=== PATIENT | female | born 1940 | race Caucasian/White ===

== ENCOUNTER → 2023-01-25 14:18 | Outpatient (BNVA) | payer MEDICARE, SELFPAY | PROVIDERS: PCP Internal Medicine; Visit Provider Psychiatry & Neurology Neurology | DX: M54.2 Cervicalgia (principal); R26.9 Unspecified abnormalities of gait and mobility; R51.9 Headache, unspecified; G89.29 Other chronic pain | CPT/HCPCS: 99202 ==

== ENCOUNTER 2023-02-16 13:39 | Outpatient (REF) | payer MEDICARE, SELFPAY ==
--- NOTE | ~2023-02-16 | MR_ITS ---
MR CERVICAL SPINE WITHOUT CONTRAST CLINICAL INFORMATION: Spondylosis without myelopathy or radiculopathy. COMPARISON: None available. TECHNIQUE: MRI of the cervical spine was obtained using routine sequences without contrast. FINDINGS: There is mild anterior subluxation of C2 on C3. There is severe disc volume loss at C5-C6 and mild disc volume loss at C6-C7. There is no bone marrow edema. There are no acute fractures. Vertebral body heights are maintained. Craniocervical junction is unremarkable. Cervical arterial flow voids are maintained. No significant extraspinal soft tissue findings. No cord signal changes. C2-C3: There is mild anterior subluxation. Advanced left-sided facet arthropathy results in mild left-sided foraminal encroachment. No central canal and no right foraminal stenosis. C3-C4: Disc osteophyte and ligamentum flavum thickening mildly narrow the central canal. Uncovertebral joint spurring and facet arthropathy result in mild bilateral foraminal encroachment. C4-C5: Disc osteophyte and ligamentum flavum thickening result in mild narrowing of the central canal. Left greater the right facet arthropathy. No significant foraminal stenosis. C5-C6: Disc osteophyte and ligamentum flavum thickening mildly narrow the central canal. Uncovertebral joint spurring and facet arthropathy result in moderate right-sided foraminal stenosis. C6-C7: Disc osteophyte mildly narrows the central canal and there is no foraminal stenosis. C7-T1: Contour is normal. No central canal stenosis and no foraminal stenosis. MR/MR cervical spine wo con IMPRESSION: Multilevel cervical spondylosis. Spondylitic changes result in moderate right-sided foraminal stenosis at C5-C6. There is no severe central canal stenosis within the cervical spine. Mild anterior subluxation of C2 on C3. There is advanced multilevel hypertrophic facet arthropathy primarily on the left side.
== END 2023-02-16 13:40 | disposition home or self-care (01) ==
LOC: HO.MRI 13:39
PROVIDERS: PCP Internal Medicine; Visit Provider Psychiatry & Neurology Neurology
DX: M47.812 Spondylosis without myelopathy or radiculopathy, cervical region (principal)
CPT/HCPCS: 72141

== ENCOUNTER 2023-05-05 10:31 | Outpatient (AMB) | payer MEDICARE, SELFPAY ==
--- NOTE | 2023-05-05 10:34 | MHC.OFFVIS ---
Intake Vital Signs 05/05/23 10:35 Height 5 ft 6 in Weight 157 lb 2 oz BMI 25.4 BP 140/68 H Blood Pressure Location Rt brachial Position Sitting Pulse 101 H Pulse Source Pulse Oximeter Pulse Oximetry (%) 96 Oxygen Delivery Method Room Air Intake Visit Reasons: 3M FOLLOW UP Retropulsion-lvm Intake Note: Patient presents for 3 month follow up Allergies aspirin Allergy (Severe, Verified 05/05/23 10:37) Hives meperidine [From Demerol] Allergy (Severe, Verified 05/05/23 10:37) gi upset sulfamethoxazole [From Bactrim] Allergy (Unknown, Verified 05/05/23 10:37) Unknown trimethoprim [From Bactrim] Allergy (Unknown, Verified 05/05/23 10:37) Unknown Medication List - Last Reconciled 05/05/23 by Holly Pearl MD biotin 5 mg PO DAILY budesonide-formoterol 80-4.5 mcg/actuation (Symbicort) 1 inh inhalation BID cyclobenzaprine 10 mg PO BEDTIME denosumab (Prolia) 60 mg subcut [id number] fluticasone propionate 50 mcg/actuation 1 spray intranasal BID levothyroxine mcg PO lisinopril 10 mg PO DAILY magnesium glycinate 400 mg (4 x 100 mg) PO DAILY HPI HPI Comments History of Present Illness Details 82y/o right handed female comes for gait disturbance and retropulsion. She has a long h/o arthritis in her knees, hips, shoulders, neck and back. [facility] she had gait issues for many years due to pain but has worsened in the past 1 year. she reports she feels unsteady along with neck and back pain . she wakes up normal but after few hours of being up her neck and back starts hurting and her gait worsens. No falls.she uses a cane or walker on and off. Her last imaging was in 2016 for her neck and later for her back. she reports occasional tingling in her fingers , toes L>R she denies any radiating pain in UE or LE she has stress incontinence and urgency incontinence. she was very athletic but gave up a lot of activities due to her arthritis. SHe has occasional tremors when she is under stress or pain.Her speech is normal. Cognition is good. [facility] Medical History (Updated 05/05/23 @ 11:06 by Holly Pearl MD) Allergic rhinitis Anxiety Aortic valve disease, rheumatic Arthritis Asthma Cervical dystonia Cervical spondylosis Chronic headaches Gait abnormality HTN (hypertension) Hypothyroidism LBBB (left bundle branch block) Neck pain Surgical History History of hip replacement History of knee replacement Family History Father COPD (chronic obstructive pulmonary disease) Mother Diabetes Paternal Aunt Breast CA Brother Prostate CA Social History Alcohol intake: current Patient Tobacco Use Status: Former Tobacco user Physical Exam Vital Signs: Last Vital Signs Pulse 101 H 05/05/23 10:35 BP 140/68 H 05/05/23 10:35 Pulse Ox 96 05/05/23 10:35 Oxygen Delivery Method Room Air 05/05/23 10:35 BMI result Body Mass Index 25.4 Const General: cooperative, healthy appearing, comfortable and no acute distress Nutritional Appearance: average body habitus Orientation/consciousness: patient oriented x3 Limitations: ambulation with cane HEENT Head: Yes normal to inspection Eyes Pupils: Equal, round and reactive pupils present Neck Other: antecollis restricted range of motion Neuro General: patient oriented x3, tone normal and moves all extremities Cranial nerves: Yes Equal, round and reactive pupils present, Yes Bilaterally intact EOM present, Yes Nystagmus not present, Yes Normal facial strength present, Yes Midline tongue present and Yes Ability to bilaterally elevate shoulders present Cognition (Neuro): normal cognition Gait exam (Neuro): Other gait observations present (mild wide based, small steps ) Motor exam (neuro): 5/5 motor strength present throughout and Normal motor muscle tone present throughout Deep tendon reflexes (DTR's): Right triceps reflex intensity grade: 2+, Left triceps reflex intensity grade: 2+, Rt Biceps (C5, C6): 2+, Left biceps reflex intensity grade: 2+, Right brachioradialis reflex intensity grade: 2+, Left brachioradialis reflex intensity grade: 2+, Right patellar reflex intensity grade: 1+ and Left patellar reflex intensity grade: 1+ Coordination: [id number]-ew-wiqu test normal Psych Appearance: grossly normal Assessment & Plan Assessment & Plan (1) Neck pain: Code(s): M54.2 - Cervicalgia (2) Gait abnormality: Code(s): R26.9 - Unspecified abnormalities of gait and mobility (3) Chronic headaches: Comment: cervicogenic Code(s): R51.9 - Headache, unspecified; G89.29 - Other chronic pain (4) Cervical dystonia: Code(s): G24.3 - Spasmodic torticollis Plan MRI C spine- spondylosis She will benefit from Botox- Obtain prior auth and schedule Increase Flexeril 10mg qhs PT for gait and myofascial release There is no evidence of parkinsons on todays exam Orders: Orders PT Evaluation and Treatment Today G89.29 - Other chronic pain, M47.812 - Spondylosis without myelopathy or radiculopathy, cervical region, R51.9 - Headache, unspecified Medications: New magnesium glycinate 400 mg (4 x 100 mg) PO DAILY 120 tabs 0RF Changed From cyclobenzaprine 5 mg PO BEDTIME 30 tabs 1RF To cyclobenzaprine 10 mg PO BEDTIME 30 tabs 1RF Coding Level of Care Code Est Pt Level 4 (67671) Diagnoses Neck pain M54.2 Gait abnormality R26.9 Chronic headaches R51.9; G89.29 Cervical dystonia G24.3
[2023-05-05 10:35] VITALS: BP 140/68; PULSE 101; O2SAT 96; BMI 25.4
== END 2023-05-05 11:12 | disposition home or self-care (01) ==
LOC: HO.HSMS 10:31
PROVIDERS: PCP Internal Medicine; Visit Provider Psychiatry & Neurology Neurology
DX: M54.2 Cervicalgia (principal); R26.9 Unspecified abnormalities of gait and mobility; R51.9 Headache, unspecified; G89.29 Other chronic pain; G24.3 Spasmodic torticollis
CPT/HCPCS: 99214

== ENCOUNTER → 2023-05-05 10:31 | Outpatient (BNVA) | payer MEDICARE, SELFPAY | PROVIDERS: PCP Internal Medicine; Visit Provider Psychiatry & Neurology Neurology | DX: M47.812 Spondylosis without myelopathy or radiculopathy, cervical region (principal); G89.29 Other chronic pain; G24.3 Spasmodic torticollis; R26.89 Other abnormalities of gait and mobility; R51.9 Headache, unspecified | CPT/HCPCS: 99212 ==

== ENCOUNTER 2023-08-06 08:36 | Outpatient (AMB) | payer MEDICARE, SELFPAY ==
--- NOTE | 2023-08-06 08:37 | MHC.OFFVIS ---
Intake Vital Signs 08/06/23 08:41 Height 5 ft 6 in Weight 147 lb 9 oz BMI 23.8 BP 132/68 Blood Pressure Location Rt brachial Position Sitting Respiration 15 Pulse 120 H Pulse Source Pulse Oximeter Pulse Oximetry (%) 96 Oxygen Delivery Method Room Air Intake Visit Reasons: botox (b&b)-lvm Intake Note: Pt presents to office for Botox injection. Pt states headaches and neck pain are much better. Allergies aspirin Allergy (Severe, Verified 08/06/23 08:38) Hives meperidine [From Demerol] Allergy (Severe, Verified 08/06/23 08:38) gi upset sulfamethoxazole [From Bactrim] Allergy (Unknown, Verified 08/06/23 08:38) Unknown trimethoprim [From Bactrim] Allergy (Unknown, Verified 08/06/23 08:38) Unknown Medication List - Last Reconciled 08/06/23 by Holly Pearl MD biotin 5 mg PO DAILY budesonide-formoterol 80-4.5 mcg/actuation (Symbicort) 1 inh inhalation BID cyclobenzaprine 10 mg PO BEDTIME denosumab (Prolia) 60 mg subcut [id number] fluticasone propionate 50 mcg/actuation 1 spray intranasal BID levothyroxine mcg PO lisinopril 10 mg PO DAILY magnesium glycinate 400 mg (4 x 100 mg) PO DAILY HPI HPI Comments History of Present Illness Details 82y/o female comes for treatment of her cervical dystonia ? Side effects including spread of toxin effect, dysphagia, breathing difficulties , bronchitis etc was discussed in detail and the patient agreed to the procedure.An informed consent was obtained ??? Botulinum toxin type A 100units X 1 -was diluted with 2 cc of normal saline at a concentration of 25 units in 0.5cc saline. Lot number [id number] expiration 09/2026 ??? Muscles injected ??? samson Splenius - 25 units each ??? Samson levator 50 units each ? Total used 150 units discarded 50 units PFSH Medical History Cervical dystonia Chronic headaches Gait abnormality HTN (hypertension) Neck pain LBBB (left bundle branch block) Cervical spondylosis Arthritis Hypothyroidism Asthma Aortic valve disease, rheumatic Allergic rhinitis Anxiety Surgical History History of knee replacement History of hip replacement Family History Father COPD (chronic obstructive pulmonary disease) Mother Diabetes Paternal Aunt Breast CA Brother Prostate CA Social History Alcohol intake: current Patient Tobacco Use Status: Former Tobacco user Physical Exam Vital Signs: Last Vital Signs Pulse 120 H 08/06/23 08:41 Resp 15 08/06/23 08:41 BP 132/68 08/06/23 08:41 Pulse Ox 96 08/06/23 08:41 Oxygen Delivery Method Room Air 08/06/23 08:41 BMI result Body Mass Index 23.8 Const General: cooperative, healthy appearing, comfortable and no acute distress Nutritional Appearance: average body habitus Orientation/consciousness: patient oriented x3 Limitations: ambulation with cane HEENT Head: Yes normal to inspection Neck Other: antecollis restricted range of motion Neuro General: patient oriented x3, tone normal and moves all extremities Cognition (Neuro): normal cognition Gait exam (Neuro): Other gait observations present (mild wide based, small steps ) Motor exam (neuro): 5/5 motor strength present throughout and Normal motor muscle tone present throughout Coordination: koacjm-qw-tngj test normal Psych Appearance: grossly normal Office Procedures Botulinum toxin Injection 78164 - Dystonia Procedure code (CPT) selection complete Office Meds onabotulinumtoxinA 200 unit solution for injection Performing Provider: Holly Pearl MD Performing Location: [facility] [place] [facility] Administered by: Holly Pearl MD on 08/06/23 10:07 Dose Route Admin Location Dispensed Lot Number Expiration Date [facility] Tire Specialist 150 unit IM 200 units [id number] 11/25/25 7948-8646-32 ALLERGAN/BOTOX Comments: see HPI Assessment & Plan Assessment & Plan (1) Cervical dystonia: Code(s): G24.3 - Spasmodic torticollis Plan She tolerated the procedure well. She will call with any new side effects Orders: Orders AMB Botulinum toxin Injection Today G24.3 - Spasmodic torticollis Coding Level of Care Code Est Pt Level 1 (93721) Diagnoses Cervical dystonia G24.3 CPT Codes Botox Injection - Botox 4: 36276 - Dystonia ([id number])
[2023-08-06 08:41] VITALS: BP 132/68; PULSE 120; RESP 15; O2SAT 96; BMI 23.8
== END 2023-08-06 09:05 | disposition home or self-care (01) ==
PROVIDERS: PCP Internal Medicine; Visit Provider Psychiatry & Neurology Neurology
DX: G24.3 Spasmodic torticollis (principal)
CPT/HCPCS: 64616

== ENCOUNTER → 2023-08-06 08:36 | Outpatient (BNVA) | payer MEDICARE, SELFPAY | PROVIDERS: PCP Internal Medicine; Visit Provider Psychiatry & Neurology Neurology | DX: G24.3 Spasmodic torticollis (principal); M47.812 Spondylosis without myelopathy or radiculopathy, cervical region | CPT/HCPCS: 64616; 99211; J0585 ==

== ENCOUNTER 2024-01-04 11:03 | Outpatient (AMB) | payer MEDICARE, SELFPAY ==
--- NOTE | 2024-01-04 11:06 | MHC.OFFVIS ---
Intake Vital Signs 01/04/24 11:08 Height 5 ft 6 in Weight 128 lb 8 oz BMI 20.7 BP 158/78 H Blood Pressure Location Rt brachial Position Sitting Respiration 17 Pulse 104 H Pulse Source Pulse Oximeter Pulse Oximetry (%) 97 Oxygen Delivery Method Room Air Intake Visit Reasons: Botox-LVM Intake Note: Pt presents to the office for Botox injections. Keyseating Machine Set Up Operator Required: No Allergies aspirin Allergy (Severe, Verified 01/04/24 11:07) Hives meperidine [From Demerol] Allergy (Severe, Verified 01/04/24 11:07) gi upset sulfamethoxazole [From Bactrim] Allergy (Unknown, Verified 01/04/24 11:07) Unknown trimethoprim [From Bactrim] Allergy (Unknown, Verified 01/04/24 11:07) Unknown Medication List - Last Reconciled 01/04/24 by Holly Pearl MD biotin 5 mg PO DAILY budesonide-formoterol 80-4.5 mcg/actuation (Symbicort) 1 inh inhalation BID cyclobenzaprine 10 mg PO BEDTIME fluticasone propionate 50 mcg/actuation 1 spray intranasal BID levothyroxine mcg PO lisinopril 10 mg PO DAILY sertraline 25 mg PO DAILY HPI HPI Comments History of Present Illness Details 83y/o female comes for treatment of her cervical dystonia ? Side effects including spread of toxin effect, dysphagia, breathing difficulties , bronchitis etc was discussed in detail and the patient agreed to the procedure.An informed consent was obtained ??? Botulinum toxin type A 200units X 1 -was diluted with 2 cc of normal saline at a concentration of 25 units in 0.5cc saline. Lot number [id number] expiration 03/2026 ??? Muscles injected ??? samson Splenius - 50 units each ??? Samson levator 50 units each ? Total used 200 units [facility] Medical History Cervical dystonia Chronic headaches Gait abnormality HTN (hypertension) Neck pain LBBB (left bundle branch block) Cervical spondylosis Arthritis Hypothyroidism Asthma Aortic valve disease, rheumatic Allergic rhinitis Anxiety Surgical History History of knee replacement History of hip replacement Family History Father COPD (chronic obstructive pulmonary disease) Mother Diabetes Paternal Aunt Breast CA Brother Prostate CA Social History Alcohol intake: current Patient Tobacco Use Status: Former Tobacco user Physical Exam Vital Signs: Last Vital Signs Pulse 104 H 01/04/24 11:08 Resp 17 01/04/24 11:08 BP 158/78 H 01/04/24 11:08 Pulse Ox 97 01/04/24 11:08 Oxygen Delivery Method Room Air 01/04/24 11:08 BMI result Body Mass Index 20.7 Const General: cooperative, healthy appearing, comfortable and no acute distress Nutritional Appearance: average body habitus Orientation/consciousness: patient oriented x3 Limitations: ambulation with cane HEENT Head: Yes normal to inspection Neck Other: antecollis restricted range of motion Neuro General: patient oriented x3, tone normal and moves all extremities Cognition (Neuro): normal cognition Gait exam (Neuro): Other gait observations present (mild wide based, small steps ) Motor exam (neuro): 5/5 motor strength present throughout and Normal motor muscle tone present throughout Coordination: sediua-fv-qrol test normal Psych Appearance: grossly normal Office Procedures Botulinum toxin Injection 43063 - Dystonia Procedure code (CPT) selection complete Office Meds onabotulinumtoxinA 200 unit solution for injection Performing Provider: Holly Pearl MD Performing Location: [facility] [place] [facility] Administered by: oHlly Pearl MD on 01/04/24 11:42 Dose Route Admin Location Dispensed Lot Number Expiration Date [facility] Research Psychologist 200 unit IM 200 units [id number] 03/25/26 7318-6295-89 ALLERGAN/BOTOX Comments: see HPI Assessment & Plan Assessment & Plan (1) Cervical dystonia: Code(s): G24.3 - Spasmodic torticollis Plan She tolerated the procedure well. She will call with any new side effects Orders: Orders AMB Botulinum toxin Injection Today G24.3 - Spasmodic torticollis Coding Level of Care Code Est Pt Level 1 (87451) Diagnoses Cervical dystonia G24.3 CPT Codes Botox Injection - Botox 4: 44713 - Dystonia ([id number])
[2024-01-04 11:08] VITALS: BP 158/78; PULSE 104; RESP 17; O2SAT 97; BMI 20.7
== END 2024-01-04 11:50 | disposition home or self-care (01) ==
PROVIDERS: PCP Internal Medicine; Visit Provider Psychiatry & Neurology Neurology
DX: G24.3 Spasmodic torticollis (principal)
CPT/HCPCS: 64616

== ENCOUNTER → 2024-01-04 11:03 | Outpatient (BNVA) | payer MEDICARE, SELFPAY | PROVIDERS: PCP Internal Medicine; Visit Provider Psychiatry & Neurology Neurology | DX: G24.3 Spasmodic torticollis (principal) | CPT/HCPCS: 64616; 99211; J0585 ==

== ENCOUNTER 2024-07-12 10:39 | Outpatient (AMB) | payer MEDICARE, SELFPAY ==
--- NOTE | 2024-07-12 10:45 | MHC.OFFVIS ---
Vital Signs 07/12/24 10:46 Height 5 ft 6 in Weight 127 lb 8 oz BMI 20.6 BP 132/70 Blood Pressure Location Rt brachial Position Sitting Respiration 16 Pulse 107 H Pulse Source Pulse Oximeter Pulse Oximetry (%) 95 Oxygen Delivery Method Room Air Intake Visit Reasons: botox (b&b) Intake Note: Pt presents to the office for Botox injections for cervical dystonia. Business System Consultant Required: No Allergies aspirin Allergy (Severe, Verified 07/12/24 10:46) Hives meperidine [From Demerol] Allergy (Severe, Verified 07/12/24 10:46) gi upset sulfamethoxazole [From Bactrim] Allergy (Unknown, Verified 07/12/24 10:46) Unknown trimethoprim [From Bactrim] Allergy (Unknown, Verified 07/12/24 10:46) Unknown Medication List - Last Reconciled 07/12/24 by Holly Pearl MD biotin 5 mg PO DAILY budesonide-formoterol 80-4.5 mcg/actuation (Symbicort) 1 inh inhalation BID cyclobenzaprine 10 mg PO BEDTIME fluticasone propionate 50 mcg/actuation 1 spray intranasal BID levothyroxine mcg PO lisinopril 10 mg PO DAILY sertraline 25 mg PO DAILY HPI Comments Details: 83y/o female comes for treatment of her cervical dystonia ? Side effects including spread of toxin effect, dysphagia, breathing difficulties , bronchitis etc was discussed in detail and the patient agreed to the procedure.An informed consent was obtained ??? Botulinum toxin type A 200units X 1 -was diluted with 2 cc of normal saline at a concentration of 25 units in 0.5cc saline. Lot number [id number] expiration 09/2026 ??? Muscles injected ??? august Splenius - 50 units each ??? left levator 50 units Left trapezius 25 units Right Levator 25 units ? Total used 200 units [facility] Medical History Lumbar compression fracture Cervical dystonia Chronic headaches Gait abnormality HTN (hypertension) Neck pain LBBB (left bundle branch block) Cervical spondylosis Arthritis Hypothyroidism Asthma Aortic valve disease, rheumatic Allergic rhinitis Anxiety Surgical History History of knee replacement History of hip replacement Family History Father COPD (chronic obstructive pulmonary disease) Mother Diabetes Paternal Aunt Breast CA Brother Prostate CA Social History Alcohol intake: current Patient Tobacco Use Status: Former Tobacco user Physical Exam Vital Signs: Last Vital Signs Pulse 107 H 07/12/24 10:46 Resp 16 07/12/24 10:46 BP 132/70 07/12/24 10:46 Pulse Ox 95 07/12/24 10:46 Oxygen Delivery Method Room Air 07/12/24 10:46 BMI result Body Mass Index 20.6 Const General: cooperative, healthy appearing, comfortable and no acute distress Nutritional Appearance: average body habitus Orientation/consciousness: patient oriented x3 Limitations: ambulation with cane HEENT Head: Yes normal to inspection Neck Other: antecollis restricted range of motion Neuro General: patient oriented x3, tone normal and moves all extremities Cognition (Neuro): normal cognition Gait exam (Neuro): Other gait observations present (mild wide based, small steps ) Motor exam (neuro): 5/5 motor strength present throughout and Normal motor muscle tone present throughout Coordination: mrulhg-ju-rlqf test normal Psych Appearance: grossly normal Office Procedures Botulinum toxin Injection 39683 - Dystonia Procedure code (CPT) selection complete Office Meds onabotulinumtoxinA 200 unit solution for injection Performing Provider: Holly Pearl MD Performing Location: [facility] [place] [facility] Administered by: Holly Pearl MD on 07/12/24 11:06 Dose Route Admin Location Dispensed Lot Number Expiration Date [facility] Retread Mold Operator 200 unit IM 200 units [id number] 09/24/26 4637-3634-18 ALLERGAN/BOTOX Comments: see HPI Assessment & Plan Assessment & Plan (1) 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 She will call with any new side effects Orders: Orders AMB Botulinum toxin Injection Today G24.3 - Spasmodic torticollis Medications: New onabotulinumtoxinA 200 units IM ONCE 1 ea 0RF dystonia G24.3 - Spasmodic torticollis Coding Level of Care Code Est Pt Level 1 (48802) Diagnoses Cervical dystonia G24.3 CPT Codes Botox Injection - Botox 4: 52398 - Dystonia ([id number])
[2024-07-12 10:46] VITALS: BP 132/70; PULSE 107; RESP 16; O2SAT 95; BMI 20.6
== END 2024-07-12 11:07 | disposition home or self-care (01) ==
PROVIDERS: PCP Internal Medicine; Visit Provider Psychiatry & Neurology Neurology
DX: G24.3 Spasmodic torticollis (principal)
CPT/HCPCS: 64616

== ENCOUNTER → 2024-07-12 10:39 | Outpatient (BNVA) | payer MEDICARE, SELFPAY | PROVIDERS: PCP Internal Medicine; Visit Provider Psychiatry & Neurology Neurology | DX: G24.3 Spasmodic torticollis (principal) | CPT/HCPCS: 64616; 99211; J0585 ==

== ENCOUNTER 2024-10-31 13:39 | Outpatient (AMB) | payer MEDICARE, SELFPAY ==
--- NOTE | 2024-10-31 13:47 | A.OFFVIS_ITS ---
Vital Signs 10/31/24 13:48 Height 5 ft 6 in Weight 131 lb BMI 21.1 Intake Visit Reasons: BOTOX Folder Machine Required: No Accompanied by: Daughter Allergies aspirin Allergy (Severe, Verified 10/31/24 13:54) Hives meperidine [From Demerol] Allergy (Severe, Verified 10/31/24 13:54) gi upset sulfamethoxazole [From Bactrim] Allergy (Unknown, Verified 10/31/24 13:54) Unknown trimethoprim [From Bactrim] Allergy (Unknown, Verified 10/31/24 13:54) Unknown Medication List - Last Reconciled 10/31/24 by Holly Pearl MD biotin 5 mg PO DAILY budesonide-formoterol 80-4.5 mcg/actuation (Symbicort) 1 inh inhalation BID cyclobenzaprine 10 mg PO BEDTIME fluticasone propionate 50 mcg/actuation 1 spray intranasal BID levothyroxine mcg PO lisinopril 10 mg PO DAILY sertraline 25 mg PO DAILY Do you need a note to return to daycare/school/sports/work: No HPI Comments Details: 83y/o female comes for treatment of her cervical dystonia ? Side effects including spread of toxin effect, dysphagia, breathing difficu lties , bronchitis etc was discussed in detail and the patient agreed to the procedure.An informed consent was obtained ??? Botulinum toxin type A 200units X 1 -was diluted with 2 cc of normal saline at a concentration of 25 units in 0.5cc saline. Lot number [id number] expiration 06/2026 ??? Muscles injected ??? august Splenius - 50 units each ??? left levator 50 units Left trapezius 25 units Right Levator 25 units ? Total used 200 units [facility] Medical History Lumbar compression fracture Cervical dystonia Chronic headaches Gait abnormality HTN (hypertension) Neck pain LBBB (left bundle branch block) Cervical spondylosis Arthritis Hypothyroidism Asthma Aortic valve disease, rheumatic Allergic rhinitis Anxiety Surgical History History of knee replacement History of hip replacement Family History Father COPD (chronic obstructive pulmonary disease) Mother Diabetes Paternal Aunt Breast CA Brother Prostate CA Social History Alcohol intake: current Patient Tobacco Use Status: Former Tobacco user Physical Exam Vital Signs: BMI result Body Mass Index 21.1 Const General: cooperative, healthy appearing, comfortable and no acute distress Nutritional Appearance: average body habitus Orientation/consciousness: patient oriented x3 Limitations: ambulation with cane HEENT Head: Yes normal to inspection Neck Other: antecollis restricted range of motion Neuro General: patient oriented x3, tone normal and moves all extremities Cognition (Neuro): normal cognition Gait exam (Neuro): Other gait observations present (mild wide based, small steps ) Motor exam (neuro): 5/5 motor strength present throughout and Normal motor muscle tone present throughout Coordination: ugajtd-yp-hbzi test normal Psych Appearance: grossly normal Office Procedures Botulinum toxin Injection 51774 - Dystonia Procedure code (CPT) selection complete Office Meds onabotulinumtoxinA 200 unit solution for injection Performing Provider: Holly Pearl MD Performing Location: [facility] [place] [facility] Administered by: Holly Pearl MD on 10/31/24 14:12 Dose Route Admin Location Dispensed Lot Number Expiration Date [facility] Manager Enterprise Content Management 200 unit IM 200 units [id number] ALLERGAN/BOTOX Comments: see hpi Assessment & Plan Assessment & Plan (1) 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 She will call with any new side effects Orders: Orders AMB Botulinum toxin Injection Today G24.3 - Spasmodic torticollis Medications: New onabotulinumtoxinA 200 units IM ONCE 1 ea 0RF torticollis G24.3 - Spasmodic torticollis Coding Level of Care Code Est Pt Level 1 (84078) Diagnoses Cervical dystonia G24.3 CPT Codes Botox Injection - Botox 4: 34182 - Dystonia ([id number])
[2024-10-31 13:48] VITALS: BMI 21.1
== END 2024-10-31 14:12 | disposition home or self-care (01) ==
PROVIDERS: PCP Internal Medicine; Visit Provider Psychiatry & Neurology Neurology
DX: G24.3 Spasmodic torticollis (principal)
CPT/HCPCS: 64616

== ENCOUNTER → 2024-10-31 13:39 | Outpatient (BNVA) | payer MEDICARE, SELFPAY | PROVIDERS: PCP Internal Medicine; Visit Provider Psychiatry & Neurology Neurology | DX: G24.3 Spasmodic torticollis (principal) | CPT/HCPCS: 64616; 99211; J0585 ==

== ENCOUNTER 2025-02-13 12:58 | Outpatient (AMB) | payer MEDICARE, SELFPAY ==
--- NOTE | 2025-02-13 12:57 | MHC.OFFVIS ---
Vital Signs 02/13/25 12:59 Height 5 ft 6 in Weight 130 lb BMI 21.0 BP 122/70 Blood Pressure Location Rt brachial Position Sitting Pulse 105 H Pulse Source Pulse Oximeter Pulse Oximetry (%) 98 Oxygen Delivery Method Room Air Intake Visit Reasons: botox (b&b) Intake Note: patient presents for botox injection. pharmacy supplied Allergies aspirin Allergy (Severe, Verified 02/13/25 13:03) Hives meperidine [From Demerol] Allergy (Severe, Verified 02/13/25 13:03) gi upset sulfamethoxazole [From Bactrim] Allergy (Unknown, Verified 02/13/25 13:03) Unknown trimethoprim [From Bactrim] Allergy (Unknown, Verified 02/13/25 13:03) Unknown Medication List - Last Reconciled 02/13/25 by Holly Pearl MD biotin 5 mg PO DAILY budesonide-formoterol 80-4.5 mcg/actuation (Symbicort) 1 inh inhalation BID cyclobenzaprine 10 mg PO BEDTIME fluticasone propionate 50 mcg/actuation 1 spray intranasal BID levothyroxine 112 mcg PO DAILY lisinopril 10 mg PO DAILY sertraline 25 mg PO DAILY HPI Comments Details: 84y/o female comes for treatment of her cervical dystonia ? Side effects including spread of toxin effect, dysphagia, breathing difficulties , bronchitis etc was discussed in detail and the patient agreed to the procedure.An informed consent was obtained ??? Botulinum toxin type A 200units X 1 -was diluted with 2 cc of normal saline at a concentration of 25 units in 0.5cc saline. Lot number [id number] expiration January/2027 ??? Muscles injected ??? august Splenius - 50 units each ??? left levator 50 units Left trapezius 25 units Right Levator 25 units ? Total used 200 units [facility] Medical History Lumbar compression fracture Cervical dystonia Chronic headaches Gait abnormality HTN (hypertension) Neck pain LBBB (left bundle branch block) Cervical spondylosis Arthritis Hypothyroidism Asthma Aortic valve disease, rheumatic Allergic rhinitis Anxiety Surgical History History of knee replacement History of hip replacement Family History Father COPD (chronic obstructive pulmonary disease) Mother Diabetes Paternal Aunt Breast CA Brother Prostate CA Social History Alcohol intake: current Patient Tobacco Use Status: Former Tobacco user Physical Exam Vital Signs: Last Vital Signs Pulse 105 H 02/13/25 12:59 BP 122/70 02/13/25 12:59 Pulse Ox 98 02/13/25 12:59 Oxygen Delivery Method Room Air 02/13/25 12:59 BMI result Body Mass Index 21.0 Const General: cooperative, healthy appearing, comfortable and no acute distress Nutritional Appearance: average body habitus Orientation/consciousness: patient oriented x3 Limitations: ambulation with cane HEENT Head: Yes normal to inspection Neck Other: antecollis restricted range of motion Neuro General: patient oriented x3, tone normal and moves all extremities Cognition (Neuro): normal cognition Gait exam (Neuro): Other gait observations present (mild wide based, small steps ) Motor exam (neuro): 5/5 motor strength present throughout and Normal motor muscle tone present throughout Coordination: [id number]-ajea test normal Psych Appearance: grossly normal Office Procedures Botulinum toxin Injection 19869 - Dystonia Procedure code (CPT) selection complete Office Meds onabotulinumtoxinA 200 unit solution for injection Performing Provider: Holly Pearl MD Performing Location[place] [facility] Administered by: Holly Pearl MD on 02/13/25 13:24 Dose Route Admin Location Dispensed Lot Number Expiration Date [facility] [employer]imator 200 unit IM 200 units [id number] ALLERGAN/BOTOX Comments: see HPI Assessment & Plan Assessment & Plan (1) 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 She will call with any new side effects Orders: Orders AMB Botulinum toxin Injection Today G24.3 - Spasmodic torticollis Medications: New onabotulinumtoxinA 200 units IM ONCE 1 ea 0RF torticollis G24.3 - Spasmodic torticollis Coding Level of Care Code Est Pt Level 1 (27821) Diagnoses Cervical dystonia G24.3 CPT Codes Botox Injection - Botox 4: 18873 - Dystonia ([id number])
[2025-02-13 12:59] VITALS: BP 122/70; PULSE 105; O2SAT 98; BMI 21.0
--- OUTSIDE RECORDS SUMMARY | 2025-02-13 15:22 | XMS_ITS ---
Author Name [facility] Organization Unknown History of Medication Use Medication Directions Dispensed Refills Start Date End Date Stat lidocaine (PF) 10 mg/mL (1 %) injection solution Take 2 mL by injection route. 06/29/2023 active fluticasone propionate 50 mcg/actuation nasal spray,suspension USE 1 SPRAY IN BOTH NOSTRILS TWO TIMES A DAY active lisinopril 10 mg tablet TAKE ONE TABLET BY MOUTH EVERY DAY. active Restasis 0.05 % eye drops in a dropperette INSTILL 1 DROP IN EACH EYE TWO TIMES A DAY active Symbicort 80 mcg-4.5 mcg/actuation HFA aerosol inhaler INHALE TWO PUFFS BY MOUTH TWICE A DAY RINSE MOUTH AND THROAT AFTER USE) active Problems Problem Status Onset Date Problem Type Date of Resoluti on Source Osteoarthritis of left glenohumeral joint active 2023-06-29 ProblemAct ENS_AONEC T Encounters Encounter Type Encounter Reason Primary Diagnosis Location Date Ambulatory [facility] [place] 06/29/2023 Ambulatory [facility] [place] 06/29/2023 Ambulatory [facility] [place] 06/29/2023 Ambulatory [facility] [place] 06/21/2023
--- OUTSIDE RECORDS SUMMARY | 2025-02-13 15:22 | XMS_ITS | Clinical Summary ---
Author Organization [facility] Address [address] [place] [address] Care Team Providers Care District Service Manager Name Role Phone Yandy Evans MD Primary Care Provider [phone] [phone] Allergies Active Allergy Reactions Criticality Noted Date Comments Aspirin 02/23/2019 Sulfamethoxazole-Trimethoprim 2018 Medications Medication Sig Dispensed Refills Start Date End Date Status levothyroxine (SYNTHROID, LEVOXYL) tablet 125 mcg 0 01/05/2019 Active omeprazole (PriLOSEC) 20 MG capsule Take 20 mg by mouth 2 (two) times a day. 5 01/11/2019 Active albuterol (PROVENTIL) (2.5 MG/3ML) 0.083% nebulizer solution Take 2.5 mg by nebulization every 6 (six) hours as needed for wheezing. 0 Active fluticasone (FLONASE) 50 MCG/ACT nasal spray spray/apply 1 spray in each nostril daily. 0 Active PAIN RELIEF EXTRA STRENGTH 500 MG tablet TAKE TWO TABLETS BY MOUTH THREE TIMES A DAY BEFORE MEALS (DO NOT TAKE WITH ALCOHOL) 0 07/06/2019 Active DOK 100 MG capsule TAKE ONE CAPSULE BY MOUTH TWICE A DAY FOR CONSTIPATION PREVENTION. HOLD IF LOOSE STOOLS 0 07/06/2019 Active oxyCODONE (ROXICODONE) 5 MG immediate release tablet Take 1-2 tabs p.o. every 4 to 6 hours as needed for pain 40 tablet 0 07/18/2019 Active Additional Information Patient not taking.Reason: Other, Reported on 03/14/2020 JANTOVEN 1 MG tablet Take 5 tabs daily or as directed by physician 70 tablet 0 07/20/2019 Active Additional Information Patient not taking.Reason: Other, Reported on 06/13/2020 warfarin (COUMADIN) 1 MG tablet Take 6 tabs daily or as directed by physician 48 tablet 0 07/24/2019 Active Additional Information Patient not taking.Reason: Other, Reported on 08/29/2019 warfarin (COUMADIN) 1 MG tablet Take 5 tabs daily or as directed by physician 70 tablet 0 07/24/2019 Active Additional Information Patient not taking.Reason: Other, Reported on 08/29/2019 SYMBICORT 80-4.5 MCG/ACT inhaler INHALE 2 PUFFS TWICE A DAY , RINSE MOUTH AND THROAT AFTER USE 3 08/10/2019 Active traMADol (ULTRAM) 50 MG tablet TAKE ONE TABLET BY MOUTH EVERY 4 TO 6 HOURS NEEDED FOR PAIN 0 08/18/2019 Active celecoxib (CeleBREX) 200 MG capsule Take 200 mg by mouth daily. 0 06/12/2021 Active amoxicillin (AMOXIL) 500 MG tablet Take 4 tabs 1 hour prior to dental appointment 20 tablet 3 06/24/2021 Active Active Problems Problem Noted Date Diagnosed Date Postoperative stiffness of total knee replacemen t 12/21/2019 Postop check 08/29/2019 Arthritis of knee, left 02/23/2019 Family History Medical History Relation Name Comments Cancer Brother Diabetes Mother Relation Name Status Comments Brother Mother Social History Tobacco Use Types Packs/Day Years Used Date Smoking Tobacco: Never Assessed Sex and Gender Information Value Date Recorded Sex Assigned at Not on file Gender Identity Not on file Sexual Orientation Not on file Job Start Date Occupation Industry Not on file Not on file Not on file Last Filed Vital Signs Vital Sign Reading Time Taken Comments Blood Pressure - - Pulse - - Temperature - - Respiratory Rate - - Oxygen Saturation - - Inhaled Oxygen Concentration - - Weight 67.1 kg (148 lb) 06/20/2019 8:46 AM EDT Height 165.1 cm (5' 5 ) 06/20/2019 8:46 AM EDT Body Mass Index 24.63 06/20/2019 8:46 AM EDT Plan of Treatment Health Maintenance Due Date Last Done Comments COVID-19 Vaccine (#1) 05/18/1941 Depression Screening 1953 Preventative Health Evaluation 1959 Shingrix-Zoster Vaccine (1 of 2) 1991 Fall Risk Assessment 2006 Osteoporosis Screening (DEXA Scan) 2006 DTap / Tdap / Td (2 - Tdap) 05/30/2008 05/30/1998 RSV Adult > 60+ Yrs or (1 - 1-dose 75+ series) 2016 Influenza Vaccine (#1) 2024 9, 07/29/2018, 07/29/2017, Additional history exists Pneumococcal Vaccine Completed 01/17/2015, 01/04/20 07 Hepatitis B Vaccines Aged Out No long er eligible based on patient's age to complete this topic RSV Ped < 20 months Aged Out No longe r eligible based on patient's age to complete this topic Care Teams District Service Manager Relationship Specialty Start Date End Date Yandy Evans MD [address] [address] PCP - General Internal Medicine 01/27/19
--- OUTSIDE RECORDS SUMMARY | 2025-02-13 15:22 | XMS_ITS | Clinical Summary ---
Author Organization [facility] it[facility] Address [address] [place] [address] Care Team Providers Care Clear Coat Sprayer Name Role Phone Yandy Evans MD Primary Care Provider [phone] Surgical History Surgery Date Site/Laterality Comments JOINT REPLACEMENT PROCEDURE:JOINT REPLACEMENT Medical History Medical History Date Comments Asthma DX:Asthma Hypothyroidism DX:Hypothyroidis m Osteoporosis DX:Osteoporosis Psoriasis DX:Psoriasis Family History Medical History Relation Name Comments Cancer Brother Diabetes Mother Relation Name Status Comments Brother Mother Social History Tobacco Use Types Packs/Day Years Used Date Smoking Tobacco: Never Assessed Comments Unknown Sex and Gender Information Value Date Recorded Sex Assigned at Not on file Legal Sex Female 3:16 PM EST Gender Identity Not on file Sexual Orientation Not on file Obstetrics History Plan of Treatment Health Maintenance Due Date Last Done Comments DTaP,Tdap,and Td Vaccines (1 - Tdap) 1960 Pneumococcal Vaccine: 50+ Ye ars (1 of 1 - PCV) 1991 Zoster Vaccines (1 of 2) 1991 RSV Immunization Adult Patie nts (1 - 1-dose 75+ series) 2016 Depression Screening 09/23/2022 Falls Risk Assessment 09/23/2022 Osteoporosis Screening (Bone Density Screening) 09/23/2022 Social Influencers of Health Screening 09/23/2022 COVID-19 Vaccine ( - 2023-2 5 season) 2024 Influenza Vaccine (Season Ended) 2025 HIB Vaccines Aged Out No longer eligi ble based on patient's age to complete this topic HPV Vaccines Aged Out No longer eligi ble based on patient's age to complete this topic Hepatitis A Vaccines Aged Out No long er eligible based on patient's age to complete this topic Hepatitis B Vaccines Aged Out No long er eligible based on patient's age to complete this topic IPV Vaccines Aged Out No longer eligi ble based on patient's age to complete this topic MMR Vaccines Aged Out No longer eligi ble based on patient's age to complete this topic Meningococcal ACWY Vaccine Aged Out N o longer eligible based on patient's age to complete this topic Meningococcal B Vaccine Aged Out No l onger eligible based on patient's age to complete this topic RSV Immunization Patients Un audrey 20 months Aged Out No longer eligible b ased on patient's age to complete this topic Varicella Vaccines Aged Out No longer eligible based on patient's age to complete this topic Care Teams Clear Coat Sprayer Relationship Specialty Start Date End Date Yandy Evans MD [address] [place] [address] [place] PCP - General Internal Medicine 01/27/19
== END 2025-02-13 13:24 | disposition home or self-care (01) ==
LOC: HO.HSMS 12:59
PROVIDERS: PCP Internal Medicine; Visit Provider Psychiatry & Neurology Neurology
DX: G24.3 Spasmodic torticollis (principal)
CPT/HCPCS: 64616

== ENCOUNTER → 2025-02-13 12:58 | Outpatient (BNVA) | payer MEDICARE, SELFPAY | PROVIDERS: PCP Internal Medicine; Visit Provider Psychiatry & Neurology Neurology | DX: G24.3 Spasmodic torticollis (principal) | CPT/HCPCS: 64616; 99211; J0585 ==

== ENCOUNTER 2025-05-15 12:57 | Outpatient (AMB) | payer MEDICARE, SELFPAY ==
--- NOTE | 2025-05-15 13:00 | MHC.OFFVIS ---
Vital Signs 05/15/25 13:01 Height 5 ft 6 in Weight 125 lb BMI 20.2 BP 110/72 Blood Pressure Location Lt brachial Position Sitting Pulse 90 Pulse Source Pulse Oximeter Pulse Oximetry (%) 96 Oxygen Delivery Method Room Air Intake Visit Reasons: Botox Contracts Representative Required: No Accompanied by: Self / Same As Patient Allergies aspirin Allergy (Severe, Verified 05/15/25 13:01) Hives meperidine (From Demerol) Allergy (Severe, Verified 05/15/25 13:01) gi upset sulfamethoxazole (From Bactrim) Allergy (Unknown, Verified 05/15/25 13:01) Unknown trimethoprim (From Bactrim) Allergy (Unknown, Verified 05/15/25 13:01) Unknown Medication List - Last Reconciled 05/15/25 by Holly Pearl MD biotin 5 mg PO DAILY budesonide-formoterol 80-4.5 mcg/actuation (Symbicort) 1 inh inhalation BID cyclobenzaprine 10 mg PO BEDTIME fluticasone propionate 50 mcg/actuation 1 spray intranasal BID levothyroxine 112 mcg PO DAILY lisinopril 10 mg PO DAILY sertraline 25 mg PO DAILY HPI Comments Details: 84y/o female comes for treatment of her cervical dystonia ? Side effects including spread of toxin effect, dysphagia, breathing difficulties , bronchitis etc was discussed in detail and the patient agreed to the procedure.An informed consent was obtained ??? Botulinum toxin type A 200units X 1 -was diluted with 2 cc of normal saline at a concentration of 25 units in 0.5cc saline. Lot number [id number] expiration Nov 2027 ??? Muscles injected ??? august Splenius - 50 units each ??? left levator 50 units Left trapezius 25 units Right Levator 25 units ? Total used 200 units [facility] Medical History Lumbar compression fracture Cervical dystonia Chronic headaches Gait abnormality HTN (hypertension) Neck pain LBBB (left bundle branch block) Cervical spondylosis Arthritis Hypothyroidism Asthma Aortic valve disease, rheumatic Allergic rhinitis Anxiety Surgical History History of knee replacement History of hip replacement Family History Father COPD (chronic obstructive pulmonary disease) Mother Diabetes Paternal Aunt Breast CA Brother Prostate CA Social History Alcohol intake: current Patient Tobacco Use Status: Former Tobacco user Physical Exam Vital Signs: Last Vital Signs Pulse 90 05/15/25 13:01 BP 110/72 05/15/25 13:01 Pulse Ox 96 05/15/25 13:01 Oxygen Delivery Method Room Air 05/15/25 13:01 BMI result Body Mass Index 20.2 Const General: cooperative, healthy appearing, comfortable and no acute distress Nutritional Appearance: average body habitus Orientation/consciousness: patient oriented x3 Limitations: ambulation with cane HEENT Head: Yes normal to inspection Neck Other: antecollis restricted range of motion Neuro General: patient oriented x3, tone normal and moves all extremities Cognition (Neuro): normal cognition Gait exam (Neuro): Other gait observations present (mild wide based, small steps ) Motor exam (neuro): 5/5 motor strength present throughout and Normal motor muscle tone present throughout Coordination: [id number]-tzrh test normal Psych Appearance: grossly normal Office Procedures Botulinum toxin Injection 95975 - Dystonia Procedure code (CPT) selection complete Office Meds onabotulinumtoxinA 200 unit solution for injection Performing Provider: Holly Pearl MD Performing Location: [facility] Administered by: Holly Pearl MD on 05/15/25 13:34 Dose Route Admin Location Dispensed Lot Number Expiration Date [facility] Clinical Investigator 200 unit IM 200 units [id number] ALLERGAN/BOTOX Total Dispensed Waste 200 units 0 % Comments: see hpi Assessment & Plan Assessment & Plan (1) 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 She will call with any new side effects Orders: Orders AMB Botulinum toxin Injection Today G24.3 - Spasmodic torticollis Coding Level of Care Code Est Pt Level 1 (17478) Diagnoses Cervical dystonia G24.3 CPT Codes Botox Injection - Botox 4: 52118 - Dystonia ([id number])
[2025-05-15 13:01] VITALS: BP 110/72; PULSE 90; O2SAT 96; BMI 20.2
--- OUTSIDE RECORDS SUMMARY | 2025-05-15 13:59 | XMS_ITS | Clinical Summary ---
Author Organization [facility] Address [address] [place] [address] Care Team Providers Care Senior Rd Engineer Name Role Phone Yandy Evans MD Primary Care Provider [phone] [phone] Allergies Active Allergy Reactions Criticality Noted Date [...] 1-dose 75+ series) 2016 Influenza Vaccine (#1) 2025 9, 07/29/2018, 07/29/2017, Additional history exists Pneumococcal Vaccine Completed 01/17/2015, 01/04/20 07 Hepatitis B Vaccines Aged Out No long er eligible based on patient's age to complete this topic RSV Ped < 20 months Aged Out No longe r eligible based on patient's age to complete this topic Care Teams Senior Rd Engineer Relationship Specialty Start Date End Date Yandy Evans MD [address] [address] PCP - General Internal Medicine 01/27/19
--- OUTSIDE RECORDS SUMMARY | 2025-05-15 13:59 | XMS_ITS | Clinical Summary ---
Author Organization [facility] [employer] [facility] it[facility] Address [address] [place] [address] Care Team Providers Care Maintenance Coordinator Name Role Phone Yandy Evans MD Primary Care Provider [phone] [phone] Surgical History Surgery Date Site/Laterality Comments JOINT [...] nts (1 - 1-dose 75+ series) 2016 Falls Risk Assessment 09/23/2022 Osteoporosis Screening (Bone Density Screening) 09/23/2022 Social Influencers of Health Screening 09/23/2022 COVID-19 Vaccine (1 - 2023-2 5 season) 2024 Depression Screening 10/25/2024 Influenza Vaccine (#1) 2025 HIB Vaccines Aged Out No longer [...] age to complete this topic Care Teams Maintenance Coordinator Relationship Specialty Start Date End Date Yandy Evans MD [address] [place] [address] [place] PCP - General Internal Medicine 01/27/19
--- OUTSIDE RECORDS SUMMARY | 2025-05-15 13:59 | XMS_ITS | Data Portability ---
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 I had a discussion with the patient by management. She states she is not interested in shoulder replacement surgery. She is amenable to a cortisone injection. After verbal consent was obtained. Procedure was carried out the left shoulder. The patient tolerated the procedure well. Aftercare instructions were discussed in detail. Follow-up visit 3 months time for repeat clinical exam. Should her symptoms not improve or worsen she should contact my office. She agrees with the above-noted plan. Indirect care and treatment in conjunction with Dr. Valerio Additional treatment plan discussed with the patient in detail included the following; - Provider focused nonsteroidal anti-inflammator y regimen (discussed were the pros, cons, benefits and risks as well as any black box warnings) in patients over 60 years old they should be very cautious in taking these medications due to potential decreased kidney function and or elevated blood pressure. - Analgesic pain medication for pain suppression (discussed were the pros, cons, benefits and risks as well as any black box warnings) - The use of topical pain relieving medication were discussed - The use of ice to decrease inflammation and pain - The use of assistive ambulatory devices for ambulation and fall prevention - Formal specific guided physical therapy program I reviewed my findings at length with the patient today. We discussed the nature and etiology of this problem along with current treatment options. We discussed the expected course and outcomes and what to expect. We also discussed risks and benefits. All of their questions were answered today, and there was exhibited understanding and comprehension of all that was discussed. Time Spent: 10 minutes were spent reviewing previous imaging and charting. 10 minutes were spent obtaining patient history. 5 minutes were spent on physical exam. 5minutes were spent explaining diagnosis and assessment. Today's documentation was made using voice recognition software. This note may contain grammatical errors secondary to the software. Not available 06/29/2023 11:40:26 Plan of Treatment Reminders Order Date Submit Date Provider Last Modified By Organization Details Last Modified Time Details Appointments None recorded. Lab None recorded. Referral None recorded. Procedures None recorded. Surgeries None recorded. Imaging XR, shoulder, 2 or more view 2022 023 [email or web address] [facility], [address], Andrez [facility], [place], [address], 11:50:35 Medication Orders Kenalog 40 mg/mL suspension for injection 2022 [address] [place] [address] [facility], [facility] [place], [address], 3 12:15:15 lidocaine (PF) 10 mg/mL (1 %) injection solution 2022 [address] [place] [address] [facility], [address] [place], [address], 3 12:15:15 Patient TargetsNo targets recorded. Patient Instructions Encounter Date Encounter Id Patient Instructions Last Modified By Organization Details Last Modified Time 06/29/2023 [id number] You have been provided with a cortisone injection in order to reduce the pain and inflammation that you are experiencing. The injection consists of two medications. Cortisone (an anti-inflammatory that will take 48-72 hours to take effect) and Lidocaine (a numbing agent that will last 2-3 hours). Please note that not everyone will have a lasting response following the injection. PATIENT INSTRUCTIONS Once the Lidocaine wears off, you may have an increase in your pain. I recommend icing the affected area for 20 minutes 3-4 times per day. It is recommended that you refrain from any high level activities using the joint or limb that was injected for approximately 24-48 hours. Normal day-to-day activities are generally not a problem. POSSIBLE SIDE EFFECTS Individuals with dark complexions may experience some skin discoloration locally at the site of the injection. There is the possibility of an increase in discomfort within 48 hours following the injection. This is called a flare . To help minimize the chances of this, please see the post-injection instructions above. There is a less than 1% chance of an infection. If you notice any signs of infection (redness, warmth, drainage, fever greater than 100 degrees) please call our office or contact us through the portal LEROY. Not available 06/29/2023 12:15:25 Three-view x-ray of the right shoulder reveals severe grade 3 glenohumeral joint space narrowing with osteophyte formation, subchondral sclerosis, severe AC joint space narrowing consistent with arthrosis and type II acromion without acute bony abnormality. Not available 06/29/2023 11:37:37 Reason for Referral None Reported. Problems Name Problem SNOMED Code Status Onset Date Resolution Date Notes Provider Name and Address Organization Details Recorded Time Osteoarthri tis of left glenohumera l joint 5708667849820 104 Active 2022 WENCESLAO JUÁREZ PA-C [address], [place], [address], [place] [facility], P 3 12:14:48 Problem Notes None recorded. Procedures Surgical History Date Name Laterality Status Provider Name and Address Organization Details Recorded Time 3 Shoulder Joint/Bursa Asp & Inj completed WENCESLAO JUÁREZ PA-C [address], [place], [address], [place] [facility], P 06/29/2023 11:39:38 Imaging Results None recorded. Procedure Notes None recorded. Medical Equipment None Reported. Allergies Allergen ID Allergen Name Allergen Category Reaction Reaction Severity Criticality Documentation Date Start Date Code Code System Note Provider Name and Address Organization Details Recorded Time 7868 Asacol medicatio n Not available Not available Not available 06/30/2023 83014 6 RxNorm Sobia moss, [place] - [facility], P 3 11:47:15 Medications Name Sig Start Date Stop Date Status Note LastModified by Organization Details LastModified Time cyclobenzapri ne 10 mg tablet TAKE ONE TABLET BY MOUTH DAILY AT BEDTIME active Not Available Not Available No t Available tramadol 50 mg tablet TAKE ONE TABLET BY MOUTH UP TO FOUR TIMES A DAY IF NEEDED FOR PAIN active Not Available Not Available No t Available Kenalog 40 mg/mL suspension for injection Take 1 mL by injection route. 2022 active Not Available Not Available Not Avai lable levothyroxine 125 mcg tablet TAKE ONE TABLET BY MOUTH EVERY DAY AND TAKE AN EXTRA HALF TABLET ON WEDNESDAY AND WEDNESDAY. active Not Available Not Available No t Available lisinopril 10 mg tablet TAKE ONE TABLET BY MOUTH EVERY DAY. active Not Available Not Available N ot Available albuterol sulfate HFA 90 mcg/actuation aerosol inhaler INHALE TWO PUFFS BY MOUTH FOUR TIMES A DAY NEEDED FOR WHEEZING/S HORTNESS OF BREATH active Not Available Not Available No t Available fluticasone propionate 50 mcg/actuation nasal spray,suspens ion USE 1 SPRAY IN BOTH NOSTRILS TWO TIMES A DAY active Not Available Not Available No t Available cyclobenzapri ne 5 mg tablet TAKE ONE TABLET BY MOUTH AT BEDTIME active Not Available Not Available No t Available Restasis 0.05 % eye drops in a dropperette INSTILL 1 DROP IN EACH EYE TWO TIMES A DAY active Not Available Not Available No t Available lidocaine (PF) 10 mg/mL (1 %) injection solution Take 2 mL by injection route. 2022 active Not Available Not Available Not Avai lable Symbicort 80 mcg-4.5 mcg/actuation HFA aerosol inhaler INHALE TWO PUFFS BY MOUTH TWICE A DAY RINSE MOUTH AND THROAT AFTER USE) active Not Available Not Available N ot Available Vitals Date Recorded Body height Body mass index (BMI) Body weight Provider Name and Address Organization Details Last Updated DateTime 06/30/2023 167.64 cm 25.8 kg/m2 34857.78 g Sobia Patricia [place] - [facility], 06/30/2023 11:47:36 Social History None recorded. Functional Status Question Answer Note LastModified by Organizat ion Details LastModified Time How many times per week do you consume alcohol? 1-2 times per week Information not available 06/30/2023 Do you use any illicit or recreational drugs? No Information not available 06/30/2023 Do you or have you ever used any other forms of tobacco or nicotine? No Information not available 06/30/2023 What is your level of alcohol consumption? Occasional Information not available 06/30/2023 Mental Status None recorded. Family History Relationship Description Onset Age of this Age Resolved Age Notes LastModified by Organization Details LastModified Time Mother Diabetes mellitus Not available 2022 11:49:13 Father Heart disease Not available 2022 11:49:23 Medical History Condition Response Hypothyroidism Y Anemia Y Osteopenia Y Asthma Y Gynecological HistoryNo gynecological history recorded. Obstetrics History GPAL:G 0 P 0 0 0 0 Past Encounters Encounter ID Performer Location Encounter Start Date Encounter Closed Date Diagnosis/Indication Diagnosis SNOMED-CT Code Diagnosis ICD10 Code Diagnosis Note [id number] SYLVIE PALOMO [facility] [address] [address] 06/29/2023 10:58:43 06/29/2023 11:50:34 Pain of left shoulder joint [id number] 8637244 M25.512 Osteoarthr itis of left glenohumeral joint 2002229421 904447 M19.012 Health Concerns Section Related Observation LastModified by Organization Detai ls LastModified Time None Recorded Concern Status LastModified by Organization Details LastModified Time None Recorded Advance Directives Directive None Recorded Payers Insurance Date Sequence Insurance Name Policy Number Policy Girard Covered Member ID Girard Member ID Guarantor Name 06/29/2023 2 [place] [id number] Mervat Santa [id number] Mervat Santa 09/25/2023 1 [place] [employer] [place] Mervat Santa [id number] Mervat Santa 09/25/2023 2 [place] [id number] Mervat Santa [id number] Mervat Santa Notes Date Note Type Note Provider Name and Address Organization Details Recorded Time 06/29/2023 text/html Very pleasant 82-year-old female referred by primary care for ongoing left shoulder pain. She recently was seen by neurologist for tremor for which she was told she had spinal stenosis however she has had ongoing left shoulder pain decreased range of motion. She states therapy in the past made her symptoms worse. She denies paresthesias in the left upper extremity. She is right-hand dominant here for evaluation treatment. She states she was told she had chronic rotator cuff tears. She is not interested in surgery whatsoever she is looking for conservative management with her pain. WENCESLAO JUÁREZ PA-C [address] [place] [address], [place], [address], [place] [facility], P 06/29/2023 12:16:09 OBGyn Episode No OBEpisode recorded.
== END 2025-05-15 13:34 | disposition home or self-care (01) ==
LOC: HO.HSMS 12:58
PROVIDERS: PCP Internal Medicine; Visit Provider Psychiatry & Neurology Neurology
DX: G24.3 Spasmodic torticollis (principal)
CPT/HCPCS: 64616

== ENCOUNTER → 2025-05-15 12:57 | Outpatient (BNVA) | payer MEDICARE, SELFPAY | PROVIDERS: PCP Internal Medicine; Visit Provider Psychiatry & Neurology Neurology | DX: G24.3 Spasmodic torticollis (principal) | CPT/HCPCS: 64616; 99211; J0585 ==

== ENCOUNTER 2025-08-21 13:07 | Outpatient (AMB) | payer MEDICARE, SELFPAY ==
--- NOTE | 2025-08-21 13:07 | A.OFFVIS_ITS ---
Vital Signs 08/21/25 13:08 Height 5 ft 6 in Weight 121 lb 8 oz BMI 19.6 BP 126/70 Blood Pressure Location Rt brachial Position Sitting Pulse 96 Pulse Source Pulse Oximeter Pulse Oximetry (%) 97 Oxygen Delivery Method Room Air Intake Visit Reasons: Botox Intake Note: Botox 200 Animal Science Instructor Required: No Accompanied by: Self / Same As Patient Allergies aspirin Allergy (Severe, Verified 08/21/25 13:07) Hives meperidine (From Demerol) Allergy (Severe, Verified 08/21/25 13:07) gi upset sulfamethoxazole (From Bactrim) Allergy (Unknown, Verified 08/21/25 13:07) Unknown trimethoprim (From Bactrim) Allergy (Unknown, Verified 08/21/25 13:07) Unknown Medication List - Last Reconciled 08/21/25 by Holly Pearl MD albuterol sulfate 90 mcg/actuation 2 puffs inhalation QID PRN biotin 5 mg PO DAILY budesonide-formoterol 80-4.5 mcg/actuation (Symbicort) 1 inh inhalation BID cyclobenzaprine 10 mg PO BEDTIME fluticasone propionate 50 mcg/actuation 1 spray intranasal BID levothyroxine 112 mcg PO DAILY lisinopril 10 mg PO DAILY sertraline 25 mg PO DAILY tramadol 50 mg PO QID PRN HPI Comments Details: 84y/o female comes for treatment of her cervical dystonia ? Side effects including spread of toxin effect, dysphagia, breathing difficulties , bronchitis etc was discussed in detail and the patient agreed to the procedure.An informed consent was obtained ??? Botulinum toxin type A 200units X 1 -was diluted with 2 cc of normal saline at a concentration of 25 units in 0.5cc saline. Lot number [id number] expiration Sep 2027 ??? Muscles injected ??? august Splenius - 50 units each ??? left levator 50 units Left trapezius 25 units Right Levator 25 units ? Total used 200 units [facility] Medical History Lumbar compression fracture Cervical dystonia Chronic headaches Gait abnormality HTN (hypertension) Neck pain LBBB (left bundle branch block) Cervical spondylosis Arthritis Hypothyroidism Asthma Aortic valve disease, rheumatic Allergic rhinitis Anxiety Surgical History History of knee replacement History of hip replacement Family History Father COPD (chronic obstructive pulmonary disease) Mother Diabetes Paternal Aunt Breast CA Brother Prostate CA Social History Alcohol intake: current Patient Tobacco Use Status: Former Tobacco user Physical Exam Vital Signs: Last Vital Signs Pulse 96 08/21/25 13:08 BP 126/70 08/21/25 13:08 Pulse Ox 97 08/21/25 13:08 Oxygen Delivery Method Room Air 08/21/25 13:08 BMI result Body Mass Index 19.6 Const General: cooperative, healthy appearing, comfortable and no acute distress Nutritional Appearance: average body habitus Orientation/consciousness: patient oriented x3 Limitations: ambulation with cane HEENT Head: Yes normal to inspection Neck Other: antecollis restricted range of motion Neuro General: patient oriented x3, tone normal and moves all extremities Cognition (Neuro): normal cognition Gait exam (Neuro): Other gait observations present (mild wide based, small steps ) Motor exam (neuro): 5/5 motor strength present throughout and Normal motor muscle tone present throughout Coordination: [id number]-wr-[id number] test normal Psych Appearance: grossly normal Office Procedures Botulinum toxin Injection 64642 - Dystonia Procedure code (CPT) selection complete Office Meds onabotulinumtoxinA 200 unit solution for injection Performing Provider: Holly Pearl MD Performing Location: [facility] Administered by: Holly Pearl MD on 08/21/25 13:35 Dose Route Admin Location Dispensed Lot Number Expiration Date [facility] Folding Machine Setter 200 unit IM 200 units [id number] ALLERGAN /BOTOX 2 Total Dispensed Waste 200 units 0 % Comments: see HPI Assessment & Plan Assessment & Plan (1) 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 She will call with any new side effects Orders: Orders MR cervical spine wo con Today G24.3 - Spasmodic torticollis, M47.812 - Spondylosis without myelopathy or radiculopathy, cervical region AMB Botulinum toxin Injection Today G24.3 - Spasmodic torticollis Coding Level of Care Code Est Pt Level 1 (81885) Diagnoses Cervical dystonia G24.3 CPT Codes Botox Injection - Botox 4: 54274 - Dystonia ([id number])
[2025-08-21 13:08] VITALS: BP 126/70; PULSE 96; O2SAT 97; BMI 19.6
--- OUTSIDE RECORDS SUMMARY | 2025-08-21 16:42 | XMS_ITS | Data Portability ---
Author Organization [place] [facility] Benjie Yadav AONE [place] Address [address] [place] [address] Assessment Encounter Date Assessment Date Assessment LastModified [...] more view 2022 023 [email or web address] [facility], [address], [address] [facility], [place], [address], 11:50:35 Medication Orders Kenalog 40 mg/mL suspension for injection 2022 [email or web address] [address] [facility], [facility] [place], [address], 3 12:15:15 lidocaine (PF) 10 mg/mL (1 %) injection solution 2022 [address]23 [address] [address] [facility], [address] [place], [address], 3 12:15:15 Patient TargetsNo targets recorded. Patient Instructions Encounter Date Encounter Id Patient Instructions Last Modified By Organization Details Last Modified Time 06/29/2023 [id number] You have been provided with a cortisone [...] hours following the injection. This is called dm lieberman . 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 Procedures Surgical History Date Name Laterality Status Provider Name and Address Organization Details Recorded Time 3 Shoulder Joint/Bursa Asp & Inj completed WENCESLAO JUÁREZ PA-C [address], [place], [address], [place] [facility], P 06/29/2023 11:39:38 Imaging Results None recorded. Procedure Notes None recorded. Medical Equipment None Reported. Allergies Allergen ID Allergen Name Allergen Category Reaction Reaction Severity Criticality Documentation Date Start Date Code Code System Note Provider Name and Address Organization Details Recorded Time 7868 Asacol medicatio n Not available Not available Not available 06/30/2023 73655 6 RxNorm Sobia Patricia is[place], [place] - [facility], P 3 11:47:15 46904 aluminum aspirin Not available Not available Not available Not available 07/17/20252018 611 RxNorm Not Available [facility] 5 01:28:18 04442 sulfameth oxazole / trimethop rim medicatio n Not available Not available Not available 07/17/20252018 12653 RxNorm Not Available [facility] 5 01:28:18 Medications Name Sig Start Date Stop Date Status Note LastModified by Organization Details LastModified Time celecoxib 200 mg capsule Take 200 mg by mouth daily. 2020 active Not Available Not Available Not Avai lable cyclobenzap rine 10 mg tablet TAKE ONE TABLET BY MOUTH DAILY AT BEDTIME active Not Available Not Available No t Available albuterol sulfate 2.5 mg/3 mL (0.083 %) solution for nebulizatio n Take 2.5 mg by nebulizat ion every 6 (six) hours as needed for wheezing. active Not Available Not Available No t Available tramadol 50 mg tablet TAKE ONE TABLET BY MOUTH UP TO FOUR TIMES A DAY IF NEEDED FOR PAIN active Not Available Not Available No t Available acetaminoph en 500 mg tablet TAKE TWO TABLETS BY MOUTH THREE TIMES A DAY BEFORE MEALS (DO NOT TAKE WITH ALCOHOL) 2018 active Not Available Not Available Not Avai lable amoxicillin 500 mg tablet Take 4 tabs 1 hour prior to dental appointme nt 2020 active Not Available Not Available Not Avai lable Kenalog 40 mg/mL suspension for injection Take 1 mL by injection route. 2022 active Not Available Not Available Not Avai lable DOK 100 mg capsule TAKE ONE CAPSULE BY MOUTH TWICE A DAY FOR CONSTIPAT ION PREVENTIO N. HOLD IF LOOSE STOOLS 2018 active Not Available Not Available Not Avai lable methylpredn isolone acetate 40 mg/mL suspension for injection 02/23 completed Not Available Not Available Not Available levothyroxi ne 125 mcg tablet TAKE ONE TABLET BY MOUTH EVERY DAY AND TAKE AN EXTRA HALF TABLET ON WEDNESDAY AND WEDNESDAY. active Not Available Not Available No t Available lisinopril 10 mg tablet TAKE ONE TABLET BY MOUTH EVERY DAY. active Not Available Not Available No t Available omeprazole 20 mg capsule,del ayed release Take 20 mg by mouth 2 (two) times a day. 2018 active Not Available Not Available Not Avai lable warfarin 1 mg tablet Take 5 tabs daily or as directed by physician 2018 active Not Available Not Available Not Avai lable albuterol sulfate HFA 90 mcg/actuati on aerosol inhaler INHALE TWO PUFFS BY MOUTH FOUR TIMES A DAY NEEDED FOR WHEEZING/ SHORTNESS OF BREATH active Not Available Not Available No t Available fluticasone propionate 50 mcg/actuati on nasal spray,suspe nsion spray/jennifer ly 1 spray in each nostril daily. active Not Available Not Available No t Available oxycodone 5 mg tablet Take 1-2 tabs p.o. every 4 to 6 hours as needed for pain 2018 active Not Available Not Available Not Avai lable cyclobenzap rine 5 mg tablet TAKE ONE TABLET BY [...] Available Not Avai lable Symbicort 80 mcg-4.5 mcg/actuati on HFA aerosol inhaler INHALE TWO PUFFS BY MOUTH TWICE A DAY RINSE MOUTH AND THROAT AFTER USE) active Not Available Not Available No t Available Vitals Date Recorded Body height Body mass index (BMI) Body weight Provider Name and Address Organization Details Last Updated DateTime 06/30/2023 167.64 cm 25.8 kg/m2 [address].[address] [place] [facility], 06/30/2023 11:47:36 Social History None recorded. Functional [...] available 2022 11:49:23 Medical History Condition Response Anemia Y Osteopenia Y Asthma Y Hypothyroidism Y Gynecological HistoryNo gynecological history recorded. Obstetrics History GPAL:G 0 P 0 0 0 0 Past Encounters Encounter ID Performer Location Encounter Start Date Encounter Closed Date Diagnosis/Indication Diagnosis SNOMED-CT Code Diagnosis ICD10 Code Diagnosis IMO Codes Diagnosis Note [id number] SYLVIE PALOMO [facility] [address] [address] 06/29/2023 10:58:43 06/29/2023 11:50:34 Pain of left shoulder joint 0750899784 0905311 M25.512 Osteoarthr itis of left glenohumeral joint 0922612213 090268 M19.012 Health Concerns Section Related Observation LastModified by Organization Detai ls LastModified Time None Recorded Concern Status LastModified by Organization Details LastModified Time None Recorded Advance Directives Directive None Recorded Payers Insurance Date Sequence Insurance Name Policy Number Policy Girard Covered Member ID Girard Member ID Guarantor Name 06/29/2023 2 [place] [id number] Mervat Santa [id number] Mervat Santa 09/25/2023 1 [place] [employer] Mervat Santa [id number] Mervat Santa 09/25/2023 2 [place] [id number] Mervat Santa [id number] Mervat Santa Notes Date Note Type [...] management with her pain. WENCESLAO JUÁREZ PA-C [address] [place] [address], [place], [address], [place] [facility], P 06/29/2023 12:16:09 OBGyn Episode No OBEpisode recorded.
== END 2025-08-21 13:40 | disposition home or self-care (01) ==
PROVIDERS: PCP Internal Medicine; Visit Provider Psychiatry & Neurology Neurology
DX: G24.3 Spasmodic torticollis (principal)
CPT/HCPCS: 64616

== ENCOUNTER → 2025-08-21 13:07 | Outpatient (BNVA) | payer MEDICARE, SELFPAY | PROVIDERS: PCP Internal Medicine; Visit Provider Psychiatry & Neurology Neurology | DX: G24.3 Spasmodic torticollis (principal) | CPT/HCPCS: 64616; 99211; J0585 ==

== ENCOUNTER 2025-10-23 10:04 | Outpatient (REF) | payer MEDICARE, SELFPAY ==
--- NOTE | ~2025-10-23 | MR_ITS ---
CLINICAL HISTORY: G24.3 - Spasmodic torticollis MR cervical spine without gadolinium Comparison: MR/SR - MR CERVICAL SPINE WITHOUT IV CONTRAST - 02/16/23 13:57 EDT Findings: Normal vertebral body alignment. At C2/C3 there is degenerative disc disease with uncovertebral joint hypertrophy and facet arthropathy the anterior impression upon the thecal sac and patency of the neural foramina. At C3/C4 there is degenerative disc disease with a posterior disc osteophyte complex and bilateral uncovertebral joint hypertrophy and facet arthropathy with anterior impression upon the thecal sac with mild left-sided neural foraminal narrowing. At C4/C5 there is degenerative disc disease with a posterior disc osteophyte complex and bilateral uncovertebral joint hypertrophy and facet arthropathy with anterior impression upon the thecal sac. The neural foramina appear patent. At C5/C6 there is degenerative disc disease with a posterior disc osteophyte complex and bilateral uncovertebral joint hypertrophy and facet arthropathy with mild central spinal canal narrowing with [id number] right-sided neural foraminal narrowing. At C6/C7 there is degenerative disc disease with a posterior disc osteophyte complex with bilateral uncovertebral joint hypertrophy and facet arthropathy with mild central spinal canal narrowing. The neural foramina appear patent. Multilevel degenerative disc and facet disease is noted. No acute fracture or marrow edema is noted. Visualized intracranial contents are unremarkable. No cervical fluid collections or masses. The cervical spinal cord and cervicomedullary junction appear within normal limits. At C7/T1 there is patency of the central spinal canal and neural foramina. IMPRESSION: Multilevel degenerative disc and facet disease with acquired areas of central spinal canal and neural foraminal narrowing as described above. This document has been electronically signed by: Nick Gonzalez MD on 10/25/2025 10:56:34
--- OUTSIDE RECORDS SUMMARY | 2025-10-23 13:12 | XMS_ITS | Clinical Summary ---
Author Organization [employer] [facility] Address [address] [place] [address] Care Team Providers Care Federal Mediator Name Role Phone Yandy Evans MD Primary Care Provider [phone] Surgical History Surgery Date Site/Laterality Comments JOINT [...] on file Sexual Orientation Not on file Plan of Treatment Health Maintenance Due Date Last Done Comments DTaP,Tdap,and Td Vaccines (1 - Tdap) 1960 Pneumococcal Vaccine: 50+ Ye ars (1 of 1 - PCV) 1991 Zoster Vaccines (1 of 2) 1991 RSV Immunization Adult Patie nts (1 - 1-dose 75+ series) 2016 Depression Screening 10/25/2024 COVID-19 Vaccine ( - 2024-2 6 season) 2025 Influenza Vaccine (#1) 2025 HIB Vaccines Aged [...] age to complete this topic Care Teams Federal Mediator Relationship Specialty Start Date End Date Yandy Evans MD [address] [place] [address] PCP - General Internal Medicine 01/27/19
--- OUTSIDE RECORDS SUMMARY | 2025-10-23 13:12 | XMS_ITS | Clinical Summary ---
Author Organization [facility] Prior to 03/24/25 Address [address] [place] [address] Care Team Providers Care Slicing Machine Feeder Name Role Phone Yandy Evans MD Primary Care Provider [phone] Allergies Active Allergy Reactions Criticality Noted Date [...] age to complete this topic Care Teams Slicing Machine Feeder Relationship Specialty Start Date End Date Yandy Evans MD [address] [place] [id number] PCP - General Internal Medicine 01/27/19
--- OUTSIDE RECORDS SUMMARY | 2025-10-23 13:12 | XMS_ITS ---
Author Name [facility] Organization Unknown History of Medication Use Medication Directions Dispensed Refills Start Date End Date Stat Kenalog 40 mg/mL suspension for injection Take 1 mL by injection route. 06/29/2023 active lidocaine (PF) 10 mg/mL (1 %) injection solution Take 2 mL by injection route. 06/29/2023 active albuterol sulfate HFA 90 mcg/actuation aerosol inhaler INHALE TWO PUFFS BY MOUTH FOUR TIMES A DAY NEEDED FOR WHEEZING/SHORTNES S OF BREATH active cyclobenzaprine 10 mg tablet TAKE ONE TABLET BY MOUTH DAILY AT BEDTIME active cyclobenzaprine 5 mg tablet TAKE ONE TABLET BY MOUTH AT BEDTIME active fluticasone propionate 50 mcg/actuation nasal spray,suspension USE 1 SPRAY IN BOTH NOSTRILS TWO TIMES A DAY active levothyroxine 125 mcg tablet TAKE ONE TABLET BY MOUTH EVERY DAY AND TAKE AN EXTRA HALF TABLET ON WEDNESDAY AND WEDNESDAY. active lisinopril 10 mg tablet TAKE ONE TABLET BY MOUTH EVERY DAY. active Restasis 0.05 % eye drops in a dropperette INSTILL 1 DROP IN EACH EYE TWO TIMES A DAY active Symbicort 80 mcg-4.5 mcg/actuation HFA aerosol inhaler INHALE TWO PUFFS BY MOUTH TWICE A DAY RINSE MOUTH AND THROAT AFTER USE) active tramadol 50 mg tablet TAKE ONE TABLET BY MOUTH UP TO FOUR TIMES A DAY IF NEEDED FOR PAIN active Problems Problem Status Onset Date Problem Type Date of Resoluti on Source Osteoarthritis of left glenohumeral joint active 2023-06-29 ProblemAct [facility]NS_[facility]ON[facility] T Encounters Encounter Type Encounter Reason Primary Diagnosis Location Date Ambulatory [facility] [place] 06/29/2023 Ambulatory [facility] [place] 06/29/2023 Ambulatory [facility] [place] 06/29/2023 Ambulatory [facility] [place] 06/21/2023
== END 2025-10-23 10:05 | disposition home or self-care (01) ==
LOC: HO.MRI 10:04
PROVIDERS: PCP Internal Medicine; Visit Provider Psychiatry & Neurology Neurology
DX: G24.3 Spasmodic torticollis (principal); M47.812 Spondylosis without myelopathy or radiculopathy, cervical region
CPT/HCPCS: 72141